=== PATIENT | female | born 1975 | race African-American/Black ===

== ENCOUNTER 2019-09-21 01:37 | Day surgery (SDC) | payer BC, SELFPAY ==
[2019-09-18 08:59] VITALS: BMI 37.3
[2019-09-21 08:29] VITALS: BP 130/103; PULSE 80; RESP 18; TEMP 37.2; O2SAT 100
--- NOTE | 2019-09-21 08:35 | PM.HPGS ---
History of Present Illness History of Present Illness Consent: Risks, benefits, and alternatives have been discussed and questions answered. Patient agrees to proceed with procedure. Chief complaint: Neoplasm Screening Narrative: Leticia Douglas is a 44 year old AA female referred for screening colonoscopy secondary to history of colonic polyps. Patient had a tubulovillous adenoma removed 3 years ago. Patient states that her maternal grandfather had colon cancer. Patient is asymptomatic. PMFSH Past Medical History Medical History Dyslipidemia Hypertension Obesity Surgical History Surgical History H/O hernia repair Meds Home Medications and Allergies Home Medications Medication Instructions Recorded Confirmed Type lisinopril-hydrochlorothiazide 1 tablet PO HS 09/18/19 09/18/19 History simvastatin 40 mg PO HS 09/18/19 09/18/19 History Allergies Allergy/AdvReac Type Severity Reaction Status Date / Time No Known Allergies Allergy Unverified 09/21/19 08:20 Vital Signs Vital Signs - 24 hr 09/21/19 08:29 Temperature 37.2 C Pulse Rate 80 Respiratory Rate 18 Blood Pressure 130/103 H Pulse Oximetry 100 Exam Const: Orientation/consciousness: patient oriented x3 Resp: Auscultation: clear to auscultation bilaterally Cardio: Rate: regular rate Rhythm: regular rhythm Heart sounds: no murmurs GI: GI Palp: Yes Soft to palpation, No Tenderness to palpation present (GI), Yes No hepatosplenomegaly present and No Palpable mass present Auscultation: normal bowel sounds Neuro: General: patient oriented x3 and no focal motor deficits Extrem: General: no pedal edema Assessment and Plan Additional Plan screening colonoscopy secondary history of colonic polyps and family history of colon cancer
--- NOTE | 2019-09-21 08:40 | P.PNAN_ITS ---
Anes - Initial Pre Proc Eval Procedure: Operation Date: 09/21/19 09:30 Proposed Procedures p Screening Colonoscopy - Tim Cameron MD Date/Time: 09/21/19 08:40 Surgeon: Tim Cameron MD Pre Op Diagnosis: Neoplasm Screening Patient Data Age: 44 Gender: F Height: 1.68 m Weight: 104.4 kg Last Vital Signs Temp 37.2 C 09/21/19 08:29 Pulse 80 09/21/19 08:29 Resp 18 09/21/19 08:29 BP 130/103 H 09/21/19 08:29 Pulse Ox 100 09/21/19 08:29 Allergies Allergy/AdvReac Type Severity Reaction Status Date / Time No Known Allergies Allergy Unverified 09/21/19 08:20 Home Medications Medication Instructions Recorded Confirmed Type lisinopril-hydrochlorothiazide 1 tablet PO HS 09/18/19 09/18/19 History simvastatin 40 mg PO HS 09/18/19 09/18/19 History Patient hx anesthesia problems: none Family hx anesthesia problems: none [facility] Past Medical History Medical History Dyslipidemia Hypertension Obesity Surgical History Surgical History H/O hernia repair Anes - Eval Final PreProcedure Day of Procedure 09/21/19 08:40 Patient weight: obese Heart: regular rate and rhythm Lungs: clear to auscultation and normal air movement Airway: Mallampati scale class II Neurological: alert and oriented Last oral intake: >/= 8 hours ASA classification: III Emergent: no Anesthetic plan: proceed Anesthesia type and monitoring: general GIVS Informed Consent: The patient's anesthetic plan and its attendant risks and benefits were discussed with the patient/family/POA. Questions were solicited and answers provided to the satisfaction of the patient/family/POA.
[2019-09-21] MEDS: LACTATED RINGERS 1,000 ML 150 ML IV CONT (08:41)
[2019-09-21 09:41] VITALS: BP 126/83; PULSE 79; RESP 24; O2SAT 100
[2019-09-21 09:51] VITALS: BP 124/81; PULSE 72; RESP 23; O2SAT 100
[2019-09-21 10:01] VITALS: BP 144/98; PULSE 66; RESP 20; O2SAT 100
== END 2019-09-21 10:18 | disposition home or self-care (01) ==
PROVIDERS: PCP Internal Medicine; Visit Provider Internal Medicine Gastroenterology
PROC: 0DJD8ZZ Inspection of Lower Intestinal Tract, Via Natural or Artificial Opening Endoscopic (ICD-10-PCS; CPT 45378; principal; 2019-09-21 09:30)
DX: Z12.11 Encounter for screening for malignant neoplasm of colon (principal); K64.8 Other hemorrhoids; K64.4 Residual hemorrhoidal skin tags; Z86.010 Personal history of colon polyps; I10 Essential (primary) hypertension; E78.5 Hyperlipidemia, unspecified; E66.9 Obesity, unspecified; Z68.37 Body mass index [BMI] 37.0-37.9, adult
CPT/HCPCS: 45378; J2704; J7120

== ENCOUNTER 2023-09-13 12:57 | Emergency (ER) | payer BC, SELFPAY ==
--- NOTE | ~2023-09-13 | CT_ITS ---
EXAMINATION: CT abdomen pelvis wo con DATE: 09/13/2023 17:59 INDICATION: Epigastric abdominal pain TECHNIQUE: Computed tomography (CT) of the abdomen and pelvis was performed without intravenous contr ast. Automated exposure control and iterative reconstruction technique were employed. The dose-length product was 1290.61 mGy-cm. COMPARISON: None. FINDINGS: Lower thorax: Unremarkable Liver: Normal. Biliary/Gallbladder: Gallbladder is normal. No bile duct dilation. Pancreas: No mass or duct dilation. Spleen: Normal. Adrenals:No mass. Kidneys: No suspicious mass, obstructing stone, or hydronephrosis. Multiple bilateral nonobstructing renal calculi. Right renal atrophy. GI tract: No small or large bowel dilation. Normal appendix. Diverticulosis without diverticulitis. Mesentery/Peritoneum: No ascites, mass, or free air. Mild upper mid abdominal mesenteric stranding, w ith sparing surrounding several prominent mesenteric lymph nodes. Retroperitoneum: No mass. Pelvis: Pelvic organs are within normal limits. Soft Tissues: Small uncomplicated fat-containing umbilical hernia. Mildly inflamed small fat-containi ng supraumbilical ventral hernia. Bones: No acute osseous finding. IMPRESSION: Mild mesenteric panniculitis. Small, mildly inflamed fat-containing suprarenal umbilical ventral hernia. No other acute abdominopelvic process detected. Reviewed, dictated and finalized at location K. [employer]
[2023-09-13 13:24] VITALS: BP 144/87; PULSE 78; RESP 20; TEMP 37.1; O2SAT 98
[2023-09-13 15:39] LABS: Basophils Percent Auto 0.3 % (0.2-1.2); Eosinophils Percent Auto 0.5 % (0-4.4); Hematocrit 35.1 % (37.0-47.0); Hemoglobin 11.3 g/dL (12.0-15.0); Immature Granulocyte Absolute 0.01 K/mm3 (0.00-0.031); Immature Granulocyte Percent A 0.2 % (0-0.5); Lymphocytes Absolute Auto 1.28 K/mm3 (0.9-3.2); Lymphocytes Percent Auto 22.2 % (18.3-44.2); Mean Corpuscular HGB Conc 32.2 g/dl (32-36); Mean Corpuscular Hemoglobin 31.3 pg (26-34); Mean Corpuscular Volume 97.2 fl (80-100); Monocytes Absolute Auto 0.3 K/mm3 (0.1-0.6); Monocytes Percent Auto 4.7 % (2.6-8.5); Neutrophils Absolute Auto 4.2 K/mm3 (1.3-6.7); Neutrophils Percent Auto 72.1 % (45.5-73.1); Platelet Count Result 270 k/mm3 (150-375); Red Blood Count 3.61 M/mm3 (4.2-5.4); Red Cell Distribution Width 12.2 % (11.5-14.5); White Blood Count 5.8 K/mm3 (4.5-10.0)
[2023-09-13 15:47] LABS: Appearance Urine Clear (Clear); Bacteria Urine None Seen /hpf; Bilirubin Urine Negative (Negative); Blood Urine 3+ (Negative); Color Urine Yellow (Yellow); Glucose Urine UA Negative (Negative); Ketones Urine Negative (Negative); Leukocyte Esterase Ur Negative LEU/UL (Negative); Nitrate Urine Negative (Negative); Non Pathogenic Casts 0-2; Protein Urine 2+ mg/dL (Negative); RBC Urine >100 /hpf (0-2); Specific Grav Ur 1.014 (1.001-1.035); Squamous Epithelial Cell Urine None seen /hpf (Few); Urobilinogen Urine 0.2 mg/dL (<2.0); WBC Urine 0-5 /hpf
[2023-09-13 15:50] LABS: Add Urine Microscopic? YES
[2023-09-13 15:52] LABS: Pregnancy On Board Control Positive; Urine Pregnancy Test Negative
[2023-09-13 16:03] LABS: Alanine Aminotransferase 19 U/L (6-35); Albumin Level 4.2 g/dL (3.5-5.1); Alkaline Phosphatase 65 U/L (38-126); Anion Gap 5 mmol/L (8-16); Aspartate Amino Transferase 31 U/L (14-36); Bilirubin,Total 0.6 mg/dL (0.2-1.3); Blood Urea Nitrogen 22 mg/dL (7-17); Calcium 9.4 mg/dL (8.4-10.2); Carbon Dioxide 26 mmol/L (22-30); Chloride 105 mmol/L (98-107); Estimated CRCL calculation 50 ml/min; Estimated Glomerular Filt Rate 42; Glucose 90 mg/dL (65-110); Lipase 58 U/L (23-300); Potassium 4.5 mmol/L (3.4-5.0); Sodium 136 mmol/L (137-145)
[2023-09-13] MEDS: ACETAMINOPHEN 500 MG TABLET 1000 MG PO (17:13)
[2023-09-13 17:27] VITALS: BP 156/98; PULSE 74; RESP 16; O2SAT 98
--- NOTE | 2023-09-13 18:48 | ED.ABDPAIN ---
HPI - Abdominal Pain General Chief Complaint: Abdominal Pain Stated Complaint: abdominal pain Time Seen by Provider: 09/13/23 15:56 History of Present Illness HPI narrative: This is a 48-year-old female, with history of hypertension, presents to emergency department of sharp anterior abdominal pain for the past day. Patient states she has intermittent anterior abdominal wall pain that usually resolves on its own. today the pain reached an 8/10 is sharp and did not radiate. She states she feels tight in the area around her pain but denies fevers, chills vomiting diarrhea or bleeding. Related Data Home Medications Medication Instructions Recorded Confirmed lisinopril 20 1 tablet PO HS 09/18/19 07/20/23 mg-hydrochlorothiazide 12.5 mg tablet rosuvastatin 20 mg tablet 20 mg PO DAILY 07/20/23 07/20/23 Allergies Allergy/AdvReac Type Severity Reaction Status Date / Time No Known Allergies Allergy Verified 09/13/23 12:58 Review of Systems Review of Systems: CONSTITUTIONAL: Denies fever, chills, or sweats. CARDIOVASCULAR: Denies chest pain, palpitations, or edema. RESPIRATORY: Denies cough or dyspnea. GASTROINTESTINAL: Anterior abdominal wall pain Denies nausea, vomiting, or diarrhea. GENITOURINARY: Denies dysuria or hematuria. SKIN: Denies rash or itching. MUSCULOSKELETAL: Denies back pain, joint pain, or myalgia. NEUROLOGIC: Denies headache, numbness, dizziness, or weakness. PSYCHIATRIC: Denies anxiety or depression. [facility] Past Medical History Medical History Anxiety Dyslipidemia Encounter for IUD insertion 08/25/09 Mirena insertion Encounter for IUD removal 03/17/15 Mirena removal Heart palpitations High cholesterol Hypertension Miscarriage (~04/1995) Obesity PCR DNA positive for HSV1 Screening mammogram, encounter for Surgical History Surgical History History of cervical cerclage 03/2004 History of colonoscopy (~09/2019) wnl per pt History of dilation and curettage 04/1995 suction d&c--miscarriage History of inguinal hernia repair (~04/1977) Family History Family History Father Heart disease Diabetes mellitus Sibling Hypertension brother x2 Social History Social History Smoking status: Never smoker ( Declines) Second hand tobacco smoke exposure: No Alcohol intake: current Drinks per week: 1 Substance use: never Substance use type: does not use Do You Feel Safe in your Home?: Yes Lack of Transportation: No Lack of Food: Never True Current Housing: I Have Housing Concerned About Future Housing: No Difficulty Paying Gas/Electric Bills: No Difficulty Paying for Meds: No Currently Unemployed: No Education: Bachelor's Degree Difficulty w/ Childcare or Family Care: No Living arrangements: other Additional living arrangements comments: Occupation/Education: occupation 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 HEAD: Normocephalic, atraumatic. EYES: PERRLA and EOMI. CHEST: Clear to auscultation. No respiratory distress. No wheezes rales or rhonchi HEART: Regular rate and rhythm. No murmur heard. Normal peripheral pulses. ABDOMEN: Soft, mild tenderness to palpation in the anterior abdominal wall, just superior to the umbilicus, there is a small mobile nontender mass without overlying erythema, induration or ecchymosis., nondistended, normal active bowel sounds. NEURO: Alert and oriented x3. No focal deficit. Moving all 4 limbs spontaneously PSYCH: Normal moo
[2023-09-13 19:18] VITALS: BP 153/103; PULSE 75; RESP 20; TEMP 36.2; O2SAT 100
== END 2023-09-13 19:19 | disposition home or self-care (01) ==
PROVIDERS: Emergency Medicine; Emergency Provider Preventive Medicine Aerospace Medicine; PCP Internal Medicine
DX: R10.33 Periumbilical pain (principal); E78.00 Pure hypercholesterolemia, unspecified; I10 Essential (primary) hypertension; E66.9 Obesity, unspecified; Z68.38 Body mass index [BMI] 38.0-38.9, adult; K65.4 Sclerosing mesenteritis; K43.9 Ventral hernia without obstruction or gangrene
CPT/HCPCS: 36415; 74176; 80053; 81001; 81025; 83690; 85025; 99284; A9270